=== PATIENT | female | born 1995 | race African-American/Black ===

== ENCOUNTER 2022-11-14 21:11 | Emergency (ER) | payer MEDICAID ==
[~2022-11-14] VITALS: Ht 167.6 cm; Wt 57.5 kg
[2022-11-15 01:56] VITALS: BP 126/79; PULSE 60; RESP 18; TEMP 98; O2SAT 100
== END 2022-11-15 02:01 | disposition left against medical advice (07) ==
LOC: ER 21:11
DX: M54.89 Other dorsalgia (principal); M25.512 Pain in left shoulder; M25.511 Pain in right shoulder; Z53.21 Procedure and treatment not carried out due to patient leaving prior to being seen by health care provider